=== PATIENT | female | born 1930 | race Asian ===

== ENCOUNTER 2017-06-03 12:56 | Inpatient (IN) | payer MEDICARE, BC ==
[~2017-06-03] VITALS: Ht 142.2 cm; Wt 52.2 kg
--- NOTE | 2017-06-03 13:10 | NUR ---
BIBDTR DT DEPRESSION X 3 DAYS. PER SATTED "MY CAT DIES" AND STARTED CYRING. PATIENT IS AAO4. APPEARS IN NO APPARENT DISTRESS. RESPIRATION EVEN AND UNLABORED. VSS
[2017-06-03] MEDS ORDERED: LORAZEPAM 1 MG TABLET ONE (13:28)
[2017-06-03] MEDS ORDERED: ALPRAZOLAM 0.5 MG TABLET PO ONE (13:30)
[2017-06-03] MEDS ORDERED: ALPRAZOLAM 0.5 MG TABLET ONE (13:30)
[2017-06-03 13:38] LABS: BASOPHILS % (AUTO) 0.5 % (0.0-2.0); EOSINOPHILS # (AUTO) 0.1 /CMM (0.0-0.7); EOSINOPHILS % (AUTO) 1.3 % (0.0-6.0); HEMATOCRIT 44 % (33-45); HEMOGLOBIN 14.8 g/dL (11.5-14.8); LYMPHOCYTES # (AUTO) 1.3 /CMM (0.8-4.8); LYMPHOCYTES % (AUTO) 16.7 % (20.0-44.0); MEAN CORPUSCULAR HEMOGLOBIN 30 PG (26.0-33.0); MEAN CORPUSCULAR HGB CONC 33 g/dl (31.0-36.0); MEAN CORPUSCULAR VOLUME 89 fL (82-100); MONOCYTES # (AUTO) 0.3 /CMM (0.1-1.30); MONOCYTES % (AUTO) 3.2 % (2.0-12.0); NEUTROPHILS # (AUTO) 6.2 /CMM (1.8-8.9); NEUTROPHILS % (AUTO) 78.3 % (43.0-81.0); PLATELET COUNT (AUTO) 233 /CMM (150-450); RED BLOOD CELL COUNT(AUTO) 5.02 MIL/uL (4.0-5.2); WHITE BLOOD COUNT (AUTO) 7.9 K/uL (4.3-11.0)
[2017-06-03 14:01] LABS: CARBON DIOXIDE 26 mmol/L (21-32); CHLORIDE 104 mmol/L (98-107); CREATININE 0.7 mg/dL (0.6-1.3); GLUCOSE 129 mg/dL (74-106); POTASSIUM 3.8 mmol/L (3.5-5.1); SODIUM SERUM 138 mmol/L (136-145); UREA NITROGEN, BLOOD 16 mg/dL (7-18)
[2017-06-03 14:08] LABS: ALANINE AMINOTRANSFERASE 19 U/L (12-78); ALBUMIN 3.8 g/dL (3.4-5.0); ALKALINE PHOSPHATASE 64 U/L (46-116); ASPARTATE AMINOTRANSFERASE 17 U/L (15-37); BILIRUBIN,DIRECT 0.1 mg/dL (0.0-0.2); BILIRUBIN,TOTAL 0.5 mg/dL (0.2-1.0); INR 0.97 (0.87-1.13); PROTHROMBIN TIME 10.1 SECS (9.5-12.7); TOTAL PROTEIN, SERUM 7.7 g/dL (6.4-8.2)
[2017-06-03 14:09] LABS: ACETAMINOPHEN 0 ug/ml (10-30); ALCOHOL, BLOOD < 3 mg/dL (0-0); SALICYLATE 1.5 mg/dL (2.8-20.0)
[2017-06-03 14:37] LABS: APPEARANCE,URINE Cloudy (CLEAR); BILIRUBIN,URINE Negative (NEGATIVE); BLOOD, URINE Trace-lysed Ery/uL (NEGATIVE); COLOR,URINE Yellow (YELLOW); KETONES,URINE 15 (NEGATIVE); LEUKOCYTE ESTERASE ,URINE Negative (NEGATIVE); NITRITE, URINE Negative (NEGATIVE); PH,URINE 5.5 (5.0-8.0); PROTEIN,URINE Negative (NEGATIVE); UGLUCOSE Negative (NEGATIVE); UROBILINOGEN,URINE 0.2 EU/dL (0.2)
[2017-06-03] MEDS ORDERED: ALPR0.5T8 PO (14:44)
[2017-06-03] MEDS ORDERED: AMLO5TAB2 PO (14:44)
[2017-06-03] MEDS ORDERED: TRAM50TA2 PO (14:44)
[2017-06-03] MEDS ORDERED: CARV12.52 PO (14:44)
[2017-06-03] MEDS ORDERED: PRAV40TA3 PO (14:44)
[2017-06-03] MEDS ORDERED: ALEN70TA3 PO (14:44)
[2017-06-03] MEDS ORDERED: FAMO20TA8 PO (14:44)
[2017-06-03 14:50] LABS: BACTERIA,URINE None seen /HPF (None Seen); RBC,URINE 0-2 /HPF (0-2); SQUAMOUS EPITHELIAL CELL,UR Few /HPF (None Seen); WBC,URINE 0-2 /HPF (0-3)
--- NOTE | 2017-06-03 15:29 | NUR ---
PATIENT TRANSPORTED TO GPS,. VSS
--- NOTE | 2017-06-03 17:21 | NUR ---
GPS ADMITTING NOTE: PATIENT 86 YEARS OLD FEMALE B/B DAUGHTER PLACED ON 5150 FOR GD, DTS. PER DAUGHTER PT WAS CRYING FOR HER CAR WHO WAS IN , PT FEELING DEPRESSED ,HELPLESS . DR VALENTINO NOTIFIED WITH STANDING ORDERS .PT A/O X3 AMBULATORY, SELF CARE DENIES SI/HI AT THIS TIME, DEPRESSED MOOD CRYING ABOUT HER CAT.PER DAUGHTER PT NOT EATING OR SLEEPING CAN NOT CARE FOR SELF, SKIN ASSESSMENT DONE, SKIN CLEAN AND INTACT, PT UNABLE TO SIGN PAPERS DUE TO ANXIETY.
[2017-06-03 17:42] VITALS: BP 125/70
[2017-06-03] MEDS ORDERED: MAG HYDROX/AL HYDROX/SIMETH 30 ML UDC PO PRN (18:00)
[2017-06-03] MEDS ORDERED: PNEUMOCOCCAL 23-VAL P-SAC VAC 0.5 ML VIAL SQ ONE (18:00)
[2017-06-03] MEDS ORDERED: MAGNESIUM HYDROXIDE 30 ML UDC PO PRN (18:00)
--- NOTE | 2017-06-03 18:48 | NUR ---
GPS RN NOTE: DR ORTIZ NOTIFIED TO RECONCILED HOME MEDICATIONS
--- NOTE | 2017-06-03 19:30 | NUR ---
GPS RN NOTE, PATIENT REFUSED TO HAVE PNEUMOCOCCAL 23 0.5ML SQ ONCE AT THIS TIME. PATIENT STATES, " I HAVE HAD A LONG DAY AND I DON'T WANT A SHOT TONIGHT, CAN I HAVE THE SHOT IN THE MORNING ". PATIENT EDUCATED ON THE RISKS AND BENEFITS OF HAVING AND REFUSING AFOREMENTIONED MEDICATION. WILL CONTINUE TO MONITOR THIS PATIENT.
[2017-06-03 20:01] VITALS: BP 149/70
[2017-06-03] MEDS ORDERED: ZOLPIDEM TARTRATE 5 MG TABLET PO PRN (22:00)
[2017-06-03] MEDS ORDERED: ALENDRONATE 70 MG TABLET PO SCH (23:00)
[2017-06-03] MEDS ORDERED: TRAMADOL HCL 50 MG TABLET PO PRN (23:00)
[2017-06-03] MEDS: ACETAMINOPHEN 325 MG TABLET PO PRN (23:40)
[2017-06-04 08:00] VITALS: BP 142/65
[2017-06-04] MEDS: AMLODIPINE BESYLATE 5 MG TABLET PO SCH (08:18)
[2017-06-04] MEDS: FAMOTIDINE (20 MG) 20 MG TABLET PO SCH (08:18)
[2017-06-04] MEDS: CARVEDILOL 12.5 MG TABLET PO SCH ×2 (08:19→16:36)
[2017-06-04] MEDS ORDERED: PNEUMOCOCCAL 23-VAL P-SAC VAC 0.5 ML VIAL SQ ONE (09:00)
--- NOTE | 2017-06-04 09:14 | NUR ---
GPS/RN PATIENT REFUSED PNEUMONIA VACCINE X 3, EXPLAINED RISKS AND BENEFITS, STATED SHE WANTS TO WAIT UNTIL HER DAUGHTER COMES TO TALK TO HER ABOUT IT.
[2017-06-04 16:00] VITALS: BP 121/78
[2017-06-04] MEDS: ACETAMINOPHEN 325 MG TABLET PO PRN (16:35)
--- NOTE | 2017-06-04 16:49 | NUR ---
Initial Discharge Plan: Patient lives at [id number] [place] [id number], and wishes to return upon discharge. Patient's daughter, Chantal Guan [phone] / [phone] agrees to take her home. SW will follow up and will work to arrange safe and proper discharge. SW will provide referrals for psychiatrist and substance use treatment.
--- NOTE | 2017-06-04 17:00 | NUR ---
GPS/RN PER DR VALENTINO, NEW ORDER FOR XANAX 0.25 MG PO Q 6 HRS PRN. STATED THAT PATIENT WAS TAKING XANAX AT HOME SO IT IS OK TO ORDER. PHARMACY MADE AWARE.
[2017-06-04] MEDS: ALPRAZOLAM 0.25 MG TABLET PO PRN (17:41)
--- NOTE | 2017-06-04 17:41 | NUR ---
GPS/RN PATIENT IS ANXIOUS, RESTLESS, CRYING INTERMITTENTLY, ADMINISTERED XANAX 0.25 PO ORDERED, WILL CONTINUE TO MONITOR.
--- NOTE | 2017-06-04 19:30 | NUR ---
GPS RN NOTE, RECEIVED PATIENT AWAKE AND IN BED, NO S/S OR COMPLAINTS OF PAIN AT THIS TIME. PATIENT IS DISPLAYING NO S/S OF APPARENT DISTRESS AT THIS TIME. PATIENT BREATHING IS UNLABORED WITH EQUAL RISE AND FALL OF THE CHEST. PATIENT IS ALERT AND ORIENTED X 3 ON ROOM AIR WITH A SPO2 OF 96%. PATIENT IS CALM, COMPLIANT WITH MEDICATION, ANXIOUS, COOPERATIVE, AND NEEDS REORIENTATION. PATIENT DENIES SUICIDE IDEATIONS AND HOMICIDAL IDEATIONS AT THIS TIME. PATIENT EDUCATED ON THE USE OF THE CALL CORTÉS. PATIENT BED SIDE RAILS UP X2 FOR SAFETY, BED IS LOCKED AND LOW, AND I WILL CONTINUE TO MONITOR AND MAINTAIN SAFETY Q15MIN WITH THE HELP OF STAFF.
[2017-06-04 19:56] VITALS: BP 131/67
[2017-06-04 20:02] VITALS: BP 131/67
[2017-06-04] MEDS: ZOLPIDEM TARTRATE 5 MG TABLET PO PRN (21:11)
[2017-06-04] MEDS: ATORVASTATIN 10 MG TABLET PO SCH (21:11)
--- NOTE | 2017-06-04 21:11 | NUR ---
GPS RN NOTE, PATIENT HAS A COMPLAINT OF NOT BEING ABLE TO SLEEP AND IS REQUESTING AMBIEN AT THIS TIME. PATIENT VITAL SIGNS ARE STABLE. GAVE AMBIEN 5MG PO HS ORDERED. WILL REASSESS FOR INSOMNIA AND I WILL CONTINUE TO MONITOR THIS PATIENT.
[2017-06-05] MEDS: ACETAMINOPHEN 325 MG TABLET PO PRN (03:05)
--- NOTE | 2017-06-05 03:05 | NUR ---
GPS RN NOTE, PATIENT HAS A COMPLAINT OF HEAD ACHE AND IS REQUESTING TYLENOL AT THIS TIME. PATIENT VITAL SIGNS ARE STABLE. GAVE TYLENOL 650MG PO Q6HR PRN ORDERED. WILL REASSESS PAIN AND I WILL CONTINUE TO MONITOR THIS PATIENT.
--- NOTE | 2017-06-05 05:52 | NUR ---
GPS RN NOTE, PATIENT HAS A COMPLAINT OF INDIGESTION AND IS REQUESTING MAALOX AT THIS TIME. PATIENT VITAL SIGNS ARE STABLE. GAVE MAALOX 30ML ONE UNIT DOSE PO Q6HR PRN ORDERED. WILL CONTINUE TO MONITOR THIS PATIENT.
[2017-06-05 07:09] LABS: THYROID STIMULATING HORMONE 0.273 uIU/mL (0.358-3.74)
--- NOTE | 2017-06-05 07:30 | NUR ---
PT RECEIVED RESTING COMFORTABLY IN BED. NO S/S OR C/O PAIN OR DISTRESS NOTED. SIDE RAILS UP X2, WILL CONTINUE PLAN OF CARE.
[2017-06-05 08:00] VITALS: BP 153/84
[2017-06-05] MEDS: FAMOTIDINE (20 MG) 20 MG TABLET PO SCH (08:24)
[2017-06-05] MEDS: CARVEDILOL 12.5 MG TABLET PO SCH ×2 (08:25→16:19)
[2017-06-05] MEDS: ALPRAZOLAM 0.25 MG TABLET PO PRN ×2 (08:25→14:12)
[2017-06-05] MEDS: AMLODIPINE BESYLATE 5 MG TABLET PO SCH (08:25)
[2017-06-05 15:40] VITALS: BP 116/58
--- NOTE | 2017-06-05 18:35 | NUR ---
CHANGE OF SHIFT REPORT PT RESTING COMFORTABLY IN BED WITH EYES CLOSED. NO S/S OR C/O PAIN OR DISTRESS NOTED. SIDE RAILS UP X2. PT KEPT CLEAN, DRY, AND COMFORTABLE. NO SIGNIFICANT CHANGES SINCE PREVIOUS SHIFT. WILL GIVE REPORT TO FLY MULLER.
[2017-06-05 19:53] VITALS: BP 132/68
[2017-06-05] MEDS: ATORVASTATIN 10 MG TABLET PO SCH (21:25)
[2017-06-05] MEDS: ZOLPIDEM TARTRATE 5 MG TABLET PO PRN (21:25)
[2017-06-05] MEDS ORDERED: MIRTAZAPINE 15 MG TABLET PO SCH (22:00)
--- NOTE | 2017-06-06 07:20 | NUR ---
RN OPENING NOTES REC'VD REPORT FROM RICHA MULLER. PT LAYING IN BED AWAKE CALMLY. DX PSYCHOSIS. STATES SHE'S DEPRESSED B/C HER AND NOW HER CAT . WILL CONT TO MONITOR CLOSELY.
[2017-06-06] MEDS: FAMOTIDINE (20 MG) 20 MG TABLET PO SCH (07:54)
[2017-06-06] MEDS: AMLODIPINE BESYLATE 5 MG TABLET PO SCH (07:55)
[2017-06-06] MEDS: CARVEDILOL 12.5 MG TABLET PO SCH (07:56)
[2017-06-06 08:22] VITALS: BP 137/59
--- NOTE | 2017-06-06 12:25 | NUR ---
HOSE INSPECTOR AND PATCHER NOTE PT STABLE. NO SI/HI. ALL MEDS TAKEN THIS MORNING. GOOD APPETITE. 100% MEAL CONSUMED. VOIDS. BM TODAY. NO SKIN ISSUES. FREE FROM INJURY. EDUCATION PROVIDED DTR BY TERESO CAMPOVERDE. PVT CAR TO HOME. Addendum: 06/06/17 at 1303 by DION CARLIN RN [facility] ARZATE
--- NOTE | 2017-06-06 13:41 | NUR ---
Discharge note: Patient will be discharged home to [id number] [place] [address], via private transportation by daughter. Patients daughterChantal [phone] / [phone] is aware of discharge and has been notified. She will pick her mother up at noon. Patient has been given referrals to follow up with a psychiatrist at [facility] Address: [address] [place] [phone] . SW also advised patient to contact her [facility] insurance and obtain a list of covered behavioral health services, which will provide patient with more options. Patient was also provided a referrals to a medical doctor at [facility] Address: [address] [place] [address] . Patient had previously stated she has a PCP but could not recall who.
[2017-06-11] MEDS ORDERED: ALENDRONATE 70 MG TABLET PO SCH (09:00)
== END 2017-06-06 12:30 | disposition home or self-care (01) | DRG 885 ==
LOC: ER 12:58 → GPS 17:11
PROVIDERS: ADMIT Internal Medicine; ATTEND Psychiatry & Neurology Psychiatry
DX: F32.2 Major depressive disorder, single episode, severe without psychotic features (principal); F29 Unspecified psychosis not due to a substance or known physiological condition; E78.5 Hyperlipidemia, unspecified; G47.00 Insomnia, unspecified; I10 Essential (primary) hypertension; K21.9 Gastro-esophageal reflux disease without esophagitis; M81.0 Age-related osteoporosis without current pathological fracture
CPT/HCPCS: 36415; 80048-TC; 80061-TC; 80076-TC; 80305; 81000-TC; 84443-TC; 85025-TC; 85610-TC; 87081-TC; 90732; A4606; G0480; Z7610